=== PATIENT | female | born 1995 ===

== ENCOUNTER 2018-09-04 10:29 | Emergency (ER) | payer MEDICAID, OTHER ==
[2018-09-04 10:34] VITALS: BMI 20.3
[2018-09-04 10:35] VITALS: BP 107/68; PULSE 83; RESP 18; TEMP 98.1; O2SAT 98
--- NOTE | 2018-09-04 11:17 | ED PDOC ---
Lower Extremity Pain/Injury Time Seen by Provider: 09/04/18 11:10 Chief Complaint (Nursing): Lower Extremity Problem/Injury Chief Complaint (Provider): knee pain History Per: Patient (22 y/o female here for bilateral knee pain that occurred when she tripped and fall downstairs today. Notes pain worse L> R. ) Past Medical History Reviewed: Historical Data, Nursing Documentation, Vital Signs Vital Signs: Last Vital Signs Temp 98.1 F 09/04/18 10:34 Pulse 83 09/04/18 10:34 Resp 18 09/04/18 10:34 BP 107/68 09/04/18 10:34 Pulse Ox 98 09/04/18 10:34 - Family History Family History: States: No Known Family Hx - Home Medications Home Medications: Ambulatory Orders Medication Instructions Recorded Nitrofurantoin Macrocrystals 100 mg PO BID #14 cap 07/13/14 [Macrobid] Vitamins [] 1 tab PO DAILY #30 tab 10/28/14 Ciprofloxacin HCl [Cipro] 500 mg PO BID #14 tablet 08/21/16 Metronidazole [Flagyl] 500 mg PO TID #21 tab 08/21/16 oxyCODONE/Acetaminophen [Percocet 1 ea PO Q6H PRN #10 tab 08/21/16 5/325 mg Tab] Ibuprofen [Motrin] 600 mg PO Q8 PRN #21 tab 09/04/18 - Allergies Allergies/Adverse Reactions: Allergies Allergy/AdvReac Type Severity Reaction Status Date / Time acetaminophen [From Tylenol] Allergy SHORTNESS Verified 08/21/16 09:47 OF BREATH Review of Systems ROS Statement: Except As Marked, All Systems Reviewed And Found Negative Musculoskeletal: Positive for: Other (knee pain) Physical Exam - Reviewed Nursing Documentation Reviewed: Yes Vital Signs Reviewed: Yes - Physical Exam Appears: Positive for: Well, Non-toxic, No Acute Distress Head Exam: Positive for: ATRAUMATIC, NORMAL INSPECTION, NORMOCEPHALIC Skin: Positive for: Normal Color, Warm, DRY Eye Exam: Positive for: EOMI, Normal appearance, PERRL ENT: Positive for: Normal ENT Inspection Neck: Positive for: Normal, Painless ROM Cardiovascular/Chest: Positive for: Regular Rate, Rhythm Respiratory: Positive for: CNT, Normal Breath Sounds Gastrointestinal/Abdominal: Positive for: Normal Exam, Soft Back: Positive for: Normal Inspection Extremity: Positive for: Normal ROM, Tenderness (mild erythema right knee. able to flex and extend. Left Knee tenderness medial aspect. Able to flex and extend minimally.) Neurologic/Psych: Positive for: Alert, Oriented - ECG O2 Sat by Pulse Oximetry: 98 - Progress ED Course And Treament: XRY READ BY RADIOLOGY: NO FX PLACED IN KNEE IMMOBILIZER WITH CRUTCH INSTRUCTIONS. Disposition - Clinical Impression Clinical Impression: Knee injury - Patient ED Disposition Is Patient to be Admitted: No - Disposition Referrals: Rah Loco MD [Primary Care Provider] - Junior Akers III, MD [Staff Provider] - Disposition: Routine/Home Disposition Time: 15:50 Condition: FAIR Prescriptions: Ibuprofen [Motrin] 600 mg PO Q8 PRN #21 tab PRN Reason: Pain, Moderate (4-7) Instructions: Knee Sprain (DC) Forms: [facility] ED School/Work Excuse
--- NOTE | 2018-09-04 13:19 | RAD ---
Date of service: 09/04/2018 PROCEDURE: Bilateral Knee Radiographs. HISTORY: knee injury COMPARISON: 08/28/2013. FINDINGS: BONES: Right Knee: Bone alignment and mineralization are normal. There is no acute displaced fracture or bone destruction. Left Knee: Bone alignment and mineralization are normal. There is no acute displaced fracture or bone destruction. JOINTS: Right Knee: Normal. Left knee: Normal. SOFT TISSUES: Right Knee: Normal. Left Knee: Normal. JOINT EFFUSION: Right Knee: None. Left Knee: None. OTHER FINDINGS: None. IMPRESSION: No acute fracture or dislocation.
--- NOTE | 2018-09-04 15:38 | CT ---
Date of service: 09/04/2018 PROCEDURE: CT left knee HISTORY: R/O TIBIAL FX LEFT KNEE COMPARISON: Not available TECHNIQUE: 2.5 mm contiguous axial sections were acquired through the left knee. Sagittal and coronal images were reformatted from the axial scan. Contrast administered: None Total exam DLP: 402.18 mGy-cm. This CT exam was performed using 1 or more of the following dose reduction techniques: Automated exposure control, adjustment of the mA and/or kV according to patient size, and/or use of iterative reconstruction technique. FINDINGS: There is no evidence of fracture. There is no lytic or blastic osseous lesion. The joint spaces and articular surfaces are preserved. No articular erosions are appreciated. There is no joint effusion. There is no popliteal cyst. There is no soft tissue abnormality appreciated. IMPRESSION: No evidence of acute fracture. Unremarkable examination.
== END 2018-09-04 16:34 | disposition home or self-care (01) ==
LOC: SUPCPDRO 10:29 → H.ER 10:29
DX: S89.92XA Unspecified injury of left lower leg, initial encounter (principal); W10.9XXA Fall (on) (from) unspecified stairs and steps, initial encounter; Y92.89 Other specified places as the place of occurrence of the external cause

== ENCOUNTER 2018-11-13 15:03 | Emergency (ER) | payer MEDICAID ==
[2018-11-13 15:04] VITALS: BMI 20.3
--- NOTE | 2018-11-13 19:22 | ED PDOC ---
HPI: Female Pain Time Seen by Provider: 11/13/18 17:00 Chief Complaint (Nursing): Female Genitourinary Chief Complaint (Provider): Vaginal Cyst History Per: Patient History/Exam Limitations: no limitations Additional Complaint(s): 22 year old female who is 7 weeks presents to the ED for evaluation of a vaginal cyst for one week, similar to one she had in 2017. Patent has no PMD and has not been evaluated for this issue yet. Denies vaginal bleeding, discharge, and any other physical complaints, stating the cyst is not as painful as the last time. Past Medical History Reviewed: Historical Data, Nursing Documentation, Vital Signs Vital Signs: Last Vital Signs Temp 98.7 F 11/13/18 16:03 Pulse 91 H 11/13/18 16:03 Resp 16 11/13/18 16:03 BP 114/74 11/13/18 16:03 Pulse Ox 97 11/13/18 16:03 Primary Care Provider: FAMILY PROVIDER,NO - Medical History PMH: Fractures (left knee) - Surgical History Surgical History: No Surg Hx - Family History Family History: States: Unknown Family Hx - Social History Current smoker - smoking cessation education provided: No Alcohol: None Drugs: Denies - Home Medications Home Medications: Ambulatory Orders Medication Instructions Recorded Nitrofurantoin Macrocrystals 100 mg PO BID #14 cap 07/13/14 [Macrobid] Vitamins [] 1 tab PO DAILY #30 tab 10/28/14 Ciprofloxacin HCl [Cipro] 500 mg PO BID #14 tablet 08/21/16 Metronidazole [Flagyl] 500 mg PO TID #21 tab 08/21/16 oxyCODONE/Acetaminophen [Percocet 1 ea PO Q6H PRN #10 tab 08/21/16 5/325 mg Tab] Ibuprofen [Motrin] 600 mg PO Q8 PRN #21 tab 09/04/18 Cephalexin [cephalexin] 500 mg PO QID #28 cap 11/13/18 - Allergies Allergies/Adverse Reactions: Allergies Allergy/AdvReac Type Severity Reaction Status Date / Time acetaminophen [From Tylenol] Allergy SHORTNESS Verified 11/13/18 16:05 OF BREATH Review of Systems ROS Statement: Except As Marked, All Systems Reviewed And Found Negative Genitourinary Female: Positive for: Other (vaginal cyst). Negative for: Vaginal Discharge, Vaginal Bleeding Physical Exam - Reviewed Nursing Documentation Reviewed: Yes Vital Signs Reviewed: Yes - Physical Exam Appears: Positive for: No Acute Distress Head Exam: Positive for: ATRAUMATIC, NORMOCEPHALIC Skin: Positive for: Normal Color, Warm Eye Exam: Positive for: Normal appearance Neck: Positive for: Normal, Painless ROM, Supple Cardiovascular/Chest: Positive for: Regular Rate, Rhythm Respiratory: Positive for: Normal Breath Sounds. Negative for: Respiratory Distress Gastrointestinal/Abdominal: Positive for: Normal Exam, Soft. 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 Rodriguez who recommends obtaining an US to assess and then to offer pt I&D. Beta-HCG quant additionally ordered. [address] Rodriguez again regarding US and I&D. 2228 Dr. Rodriguez at bedside. 2327 EXAM: US Obstetrical, Complete <14 weeks CLINICAL HISTORY: Genital cyst, back pain TECHNIQUE: Transvaginal and transabdominal imaging of the maternal pelvis and a <14 week gestation with image documentation. COMPARISON: None provided. FINDINGS: GESTATION: See below. UTERUS: Uterus measures 9.3 x 6.0 x 7.1 cm. A single live intrauterine gestation is seen. CERVIX: Cervix measures 4.3 cm and appears closed. Tiny probable Nabothian cysts are seen in the cervix. OVARIES: Unremarkable. No mass. FREE FLUID: No free fluid in the cul de sac. MISCELLANEOUS: heart motion observed at 138 beats per minute. A gestational sac is seen. Mean sac diameter measures 2.1 cm compatible with 6.4 weeks estimated ultrasound age. A yolk sac is seen. Right ovary measures 2.9 x 1.4 x 1.9 cm and demonstrates normal Doppler flow. Left ovary measures 3.4 x 2.0 x 2.1 cm and demonstrates normal Doppler flow. Diller-rump length measures 0.8 - 0.9 cm compatible with estimated ultrasound age of 6.5 weeks. IMPRESSION: 1. A single live intrauterine gestation is seen. Estimated age is 6.5 weeks. 2. heart motion observed at 138 beats per minute. 3. Tiny probable Nabothian cysts are seen in the cervix. 4. Additional findings as described above. Electronically signed on November 13, 2018 11:28:03 PM EDT by: Freddy Elizabeth M.D., Certified by [facility], Diagnostic Radiology Upon provider evaluation patient is medically stable, and requires no further treatment in the ED at this time. Patient will be discharged. Counseling was provided and all questions were answered regarding diagnosis and need for follow up with PMD. dr rodriguez wanted pt discharged with keflex and outpt follow up for for lobsterman/this . There is agreement to discharge plan. Return if symptoms persist or worsen. Scribe Attestation: Documented by Sparkle Javier, acting as a scribe for Christine Pan MD. Provider Scribe Attestation: All medical record entries made by the Scribe were at my direction and personally dictated by me. I have reviewed the chart and agree that the record accurately reflects my personal performance of the history, physical exam, medical decision making, and the department course for this patient. I have also personally directed, reviewed, and agree with the discharge instructions and disposition. Disposition - Clinical Impression Clinical Impression: Bartholin cyst - Patient ED Disposition Is Patient to be Admitted: No Counseled Patient/Family Regarding: Studies Performed, Diagnosis, Need For Followup - Disposition Referrals: [facility] [Outside] [facility] [Outside] Disposition: Routine/Home Disposition Time: 20:00 Condition: IMPROVED Additional Instructions: follow up with obgyn as an outpatient as instructed and for this as well take vitamins return to the ED with any worsening or concerning symptoms Prescriptions: Cephalexin [cephalexin] 500 mg PO QID #28 cap Instructions: Bartholin's Gland Cyst Forms: [facility] (Gabonese)
[2018-11-13] MEDS ORDERED: Lidocaine 1% Inj (20ml) ONE (22:25)
[2018-11-13] MEDS ORDERED: Povidone Iodine Topical 10% Sol ONE (22:34)
--- NOTE | 2018-11-13 23:09 | CP.PCM.CON ---
<Yamila Wall - Last Filed: 11/13/18 23:27> History of Present Illness - History of Present Illness History of Present Illness: Consult Note for OBGYN: 22 y/o female w/ no significant pmhx presented to ED w/ worsening, painful labial mass persisting for 1 week. Denies chills, fevers, discharge, urinary symptoms. Pmhx: denies HomeRx: vitamins Allergies: NKDA SurgHx: I&D of bartholin cyst Famhx: denies Socialhx: denies toxic habits Review of Systems - Review of Systems All systems: reviewed and no additional remarkable complaints except Past Patient History - Infectious Disease Hx of Infectious Diseases: None - Past Medical History & Family History Past Medical History?: No - Past Social History Alcohol: None Drugs: Denies - MUSCULOSKELETAL/RHEUMATOLOGICAL Hx Fractures: Yes (left knee) - PSYCHIATRIC Hx Substance Use: No - SURGICAL HISTORY Hx Surgeries: Yes - ANESTHESIA Hx Anesthesia: No Meds Allergies/Adverse Reactions: Allergies Allergy/AdvReac Type Severity Reaction Status Date / Time acetaminophen [From Tylenol] Allergy SHORTNESS Verified 11/13/18 16:05 OF BREATH Physical Exam - Constitutional Appears: Well - Exam External exam: Swelling Results - Vital Signs Recent Vital Signs: Last Vital Signs Temp 98.7 F 11/13/18 16:03 Pulse 91 H 11/13/18 16:03 Resp 16 11/13/18 16:03 BP 114/74 11/13/18 16:03 Pulse Ox 97 11/13/18 22:29 - Labs Labs: Laboratory Results - last 24 hr 11/13/18 20:15 Beta HCG, Quant 85475.00 Assessment & Plan - Assessment and Plan (Free Text) Assessment: 22 y/o female presents w/ painful left labial mass Plan: 1. Bartholin Cyst I&D performed at bedside in ED(see procedure note) Start Keflex 500mg PO QID x 5 days. Script given to patient. Advised patient to follow up w/ PMD/OBGYN in 1 week 2. Intrauterine (~4 wk GA) TVUS reviewed and shows IUP Cont. vitamins Advised patient to seek care Case discussed w/ attending, Dr. Jennifer Wall pgyi <Manuel Rodriguez - Last Filed: 11/14/18 09:06> Results - Vital Signs Recent Vital Signs: Last Vital Signs Temp 98.2 F 11/13/18 23:10 Pulse 80 11/13/18 23:10 Resp 18 11/13/18 23:10 BP 104/57 L 11/13/18 23:10 Pulse Ox 97 11/13/18 23:31 - Labs Labs: Laboratory Results - last 24 hr 11/13/18 20:15 Beta HCG, Quant 65295.00 Assessment & Plan - Assessment and Plan (Free Text) Plan: addendum: Incision and drainage procedure: Approximately 4 cm left Bartholin gland cyst. Area sterile prepped with Betadine solution. 1% lidocaine infiltrated at level of introitus. With 11 scalpel, incision made at level of introitus into cyst. Fluid drained. Site hemostatic following drainage. Patient tolerated procedure well. Jennifer
[2018-11-13 23:11] VITALS: BP 104/57; PULSE 80; RESP 18; TEMP 98.2
[2018-11-13 23:24] VITALS: O2SAT 97
--- NOTE | 2018-11-14 09:25 | US ---
Date of service: 11/13/2018 PROCEDURE: OB Pelvic Ultrasound HISTORY: LMP: 09/24/2018 COMPARISON: No prior related exam available for comparison. TECHNIQUE: Transabdominal and endovaginal ultrasound examination of the pelvis was performed. FINDINGS: UTERUS: Gestational sac: Single intrauterine gestation. Heart rate: 138 bpm. age (Ultrasound estimated): 6 weeks 5 days +/-0 weeks 3 days Elinor-gestational hemorrhage: There is a subchorionic hemorrhage adjacent to the gestational sac measures 1.6 x 0.8 centimeter. Date of delivery (Ultrasound estimated) : 07/04/2019 Uterus measures 9.3 x 6 x 7.2 cm. Normal in size and appearance. CERVIX: Measures 4.3 cm. Long and closed. Small cysts are seen likely represent nabothian cyst.. RIGHT OVARY: Measures 2.9 x 1.4 x 1.9 cm. No mass lesion. Normal flow. LEFT OVARY: Measures 3.4 x 2 x 2.1 cm. No solid mass. Normal flow. FREE FLUID: None. OTHER FINDINGS: Small cyst are seen in the cervix likely represent nabothian cyst. IMPRESSION: Single intrauterine live with ultrasound estimated gestational age of 6 weeks 5 days +/-0 weeks 3 days. Estimated date of delivery by ultrasound is 07/04/2021. Subchorionic hemorrhage adjacent to the gestational sac measures 1.6 x 0.8 centimeter. Interval follow-up reassessment is recommended. TECHNIQUE:
== END 2018-11-13 23:25 | disposition home or self-care (01) ==
LOC: H.ER 15:03
DX: N75.0 Cyst of Bartholin's gland (principal); O26.891 Other specified pregnancy related conditions, first trimester; Z3A.01 Less than 8 weeks gestation of pregnancy; Z88.6 Allergy status to analgesic agent

== ENCOUNTER 2018-11-21 15:49 | Emergency (ER) | payer MEDICAID ==
[2018-11-21 15:50] VITALS: BMI 20.3
[2018-11-21 16:04] VITALS: BP 103/62; PULSE 94; RESP 16; TEMP 98.5; O2SAT 98
[2018-11-21] MEDS ORDERED: Lidocaine 1% (10 ml) Inj INFIL STA (16:39)
[2018-11-21] MEDS ORDERED: Lidocaine Hydrochloride 1% 10 ML ONE (16:40)
--- NOTE | 2018-11-21 16:43 | ED PDOC ---
HPI: Female Pain Time Seen by Provider: 11/21/18 16:14 Chief Complaint (Nursing): Female Genitourinary Chief Complaint (Provider): Vaginal cyst History Per: Patient History/Exam Limitations: no limitations Additional Complaint(s): Pt @ 8 weeks presents for 2nd visit for vaginal cyst. Pt was evaluated here one week ago for same, I&D performed, discharged home with Keflex. Pt states cyst is bigger now. No vaginal bleeding, no abdominal pain. Past Medical History Reviewed: Nursing Documentation, Vital Signs Vital Signs: Last Vital Signs Temp 98.5 F 11/21/18 16:03 Pulse 94 H 11/21/18 16:03 Resp 16 11/21/18 16:03 BP 103/62 11/21/18 16:03 Pulse Ox 98 11/21/18 16:03 Primary Care Provider: Tim Moran - Medical History PMH: No Chronic Diseases Denies: Fractures - Family History Family History: States: Unknown Family Hx - Social History Current smoker - smoking cessation education provided: No Alcohol: None - Home Medications Home Medications: Ambulatory Orders Medication Instructions Recorded Nitrofurantoin Macrocrystals 100 mg PO BID #14 cap 07/13/14 [Macrobid] Vitamins [] 1 tab PO DAILY #30 tab 10/28/14 Ciprofloxacin HCl [Cipro] 500 mg PO BID #14 tablet 08/21/16 Metronidazole [Flagyl] 500 mg PO TID #21 tab 08/21/16 oxyCODONE/Acetaminophen [Percocet 1 ea PO Q6H PRN #10 tab 08/21/16 5/325 mg Tab] Ibuprofen [Motrin] 600 mg PO Q8 PRN #21 tab 09/04/18 Cephalexin [cephalexin] 500 mg PO QID #28 cap 11/13/18 - Allergies Allergies/Adverse Reactions: Allergies Allergy/AdvReac Type Severity Reaction Status Date / Time acetaminophen [From Tylenol] Allergy SHORTNESS Verified 11/21/18 16:05 OF BREATH Review of Systems Constitutional: Negative for: Fever, Chills Gastrointestinal: Negative for: Abdominal Pain Genitourinary Female: Negative for: Dysuria, Hematuria, Vaginal Bleeding, Rash Physical Exam - Reviewed Nursing Documentation Reviewed: Yes Vital Signs Reviewed: Yes - Physical Exam Appears: Positive for: Well, No Acute Distress Skin: Positive for: Normal Color, Warm, Dry Eye Exam: Positive for: Normal appearance, EOMI, PERRL Gastrointestinal/Abdominal: Positive for: Normal Exam, Bowel Sounds, Soft. Negative for: Tenderness Pelvic Exam: Positive for: Mass (Fluctuant mass L labia minora, TTP, no vesicles, no bleeding, no discharge), Other (Director Of Materials Management: BHARAT Heaton) - ECG O2 Sat by Pulse Oximetry: 98 Medical Decision Making Medical Decision Makin yo female with recurrent Bartholin's cyst. - Education Assistant consult 16:[address] Wall, will consult. I&D performed by Dr. Wall, word catheter placed. Disposition - Clinical Impression Clinical Impression: Bartholin cyst - Disposition Disposition: Routine/Home Disposition Time: 20:10 Condition: IMPROVED Additional Instructions: FOLLOW-UP WITH OB WITHIN 2 DAYS FOR REEVALUATION. Instructions: Bartholin's Gland Cyst Forms: [facility] (Croatian)
[2018-11-21] MEDS ORDERED: Povidone Iodine Oint 10% Foilpak UD ONE (19:49)
--- NOTE | 2018-11-21 20:05 | CP.PCM.CON ---
<Kendall Garcia - Last Filed: 11/21/18 20:17> History of Present Illness - History of Present Illness History of Present Illness: 22 y/o F, 8.2 weeks with EDC 07/01/18 presents to ED 2nd time for vaginal cyst. Patient was seen on 11/13/18 for Bartholin cyst, I & D was done and was sent on Keflex x 7 days. Patient reports increase in size in cyst in past 1 week which is increasingly more painful and tender to touch. Denies any fever, chills, vaginal discharge, vaginal bleeding or any other symptoms. Patient had similar cyst once in the past. PMHx: Denies PSHx: I & D in the past Allergies: Tylenol ObHx: 8.2 weeks with EDC 07/01/18 F/H: Denies Meds: PNVs Review of Systems - Genitourinary Genitourinary: As Per HPI Past Patient History - Infectious Disease Hx of Infectious Diseases: None - Past Medical History & Family History Past Medical History?: No - Past Social History Alcohol: None - MUSCULOSKELETAL/RHEUMATOLOGICAL Hx Fractures: No - PSYCHIATRIC Hx Substance Use: No - SURGICAL HISTORY Hx Surgeries: No - ANESTHESIA Hx Anesthesia: No Meds Allergies/Adverse Reactions: Allergies Allergy/AdvReac Type Severity Reaction Status Date / Time acetaminophen [From Tylenol] Allergy SHORTNESS Verified 11/21/18 16:05 OF BREATH Physical Exam - Constitutional Appears: In Acute Distress - Respiratory Exam Respiratory Exam: Clear to Auscultation Bilateral, NORMAL BREATHING PATTERN - Cardiovascular Exam Cardiovascular Exam: REGULAR RHYTHM, +S1, +S2 - Expanded Exam Expanded Female exam: Positive for: vulvar tenderness (left vulval bartholin cyst, 2 x 3 cm in size, tender) - Neurological Exam Neurological exam: Alert, Oriented x3 - Psychiatric Exam Psychiatric exam: Normal Affect, Normal Mood Results - Vital Signs Recent Vital Signs: Last Vital Signs Temp 98.5 F 11/21/18 16:03 Pulse 94 H 11/21/18 16:03 Resp 16 11/21/18 16:03 BP 103/62 11/21/18 16:03 Pulse Ox 98 11/21/18 16:46 Assessment & Plan - Assessment and Plan (Free Text) Assessment: 22 y/o 8 weeks IUP with left labial bartholin cyst Plan: Bartholin Cyst - I&D performed at bedside, Area cleaned with betadine, Local anesthesia given using lidocaine, I & D performed, Word catheter placed, (See procedure note for details) - Follow up w/OBGYN in 1 week Intrauterine - Cont. vitamins - F/U with Ob for care Case discussed with Dr. Duke Garcia, PGY1 <Corby Wall - Last Filed: 11/23/18 18:58> Results - Vital Signs Recent Vital Signs: Last Vital Signs Temp 98.5 F 11/21/18 16:03 Pulse 94 H 11/21/18 16:03 Resp 16 11/21/18 16:03 BP 103/62 11/21/18 16:03 Pulse Ox 98 11/22/18 15:49 Assessment & Plan - Assessment and Plan (Free Text) Plan: After informed consent was obtained the patient was in the procedure room the patient was noted to have a left Bartholin's abscess the area was prepped with Betadine lidocaine was infused and an incision was made with an 11 blade. A Word catheter was then inserted and insufflated with saline. The patient was instructed to follow-up with her PMD for removal
== END 2018-11-21 21:06 | disposition home or self-care (01) ==
LOC: H.ER 15:49
DX: N75.0 Cyst of Bartholin's gland (principal); Z3A.08 8 weeks gestation of pregnancy; Z88.6 Allergy status to analgesic agent